=== PATIENT | female | born 1940 | race Caucasian/White ===

== ENCOUNTER 2017-06-21 10:30 | Inpatient (IN) | payer MEDICARE, OTHER ==
[2017-06-21 11:19] LABS: #Eosinphils 0.1 thou/uL (0.0-0.7); #Lymphocytes 1.8 thou/uL (1.20-3.40); #Monocytes 1.1 thou/uL (0.11-0.59); #Neutrophils 11.9 thou/uL (1.40-6.50); %Basophils 0.2 % (0.0-1.0); %Eosinophils 0.5 % (0.0-10.0); %Lymphocytes 12.1 % (21.0-51.0); %Monocytes 7.2 % (0.0-10.0); Hematocrit 29.7 % (36.0-47.0); Mean Platelet Volume 8.1 fL (7.4-10.4); Red Blood Cell (RBC) Count 3.22 mill/uL (4.20-5.40); White Blood Cell (WBC) Count 14.9 thou/uL (4.8-10.8)
[2017-06-21 11:29] LABS: PTT 24.2 SEC (22.9-36.1); Prothrombin Time 13.9 SEC (12.0-14.7)
[2017-06-21 11:41] LABS: ALT (SGPT) Less than 7 U/L (8-55); AST (SGOT) 13 U/L (5-34); Alkaline Phosphatase 69 U/L (40-150); Anion Gap 11 mmol/L (10-20); BUN (Urea Nitrogen) 63 mg/dL (9.8-20.1); Bilirubin, Total 0.3 mg/dL (0.2-1.2); Calc. Creatinine Clearance 0 mL/min (70-130); Calcium 9.7 mg/dL (7.8-10.44); Carbon Dioxide 27 mmol/L (23-31); Chloride 104 mmol/L (98-107); Estimated GFR-MDRD 52; Globulin 3.3 g/dL (2.4-3.5); Iron 37 ug/dL (50-170); Protein, Total 6.7 g/dL (6.0-8.3)
[2017-06-21] MEDS ORDERED: Pantoprazole 40 MG VIAL ONE (12:33)
[2017-06-21] MEDS ORDERED: Ondansetron HCl/PF 4 MG/2 ML Vial ONE ×2 (14:28→17:54)
--- NOTE | 2017-06-21 14:39 | HP ---
PRIMARY CARE PHYSICIAN: Charleen Vazquez D.O. CHIEF COMPLAINT: Black stools. HISTORY OF PRESENT ILLNESS: Ms. Wilson is a pleasant 76-year-old white female with a history of hyperte nsion, hypothyroidism, and osteoarthritis, who has had increased knee pain for the last 4-5 days. Lyly gonzalez has taken Aleve, but no more than about 2 tablets a day, 200 mg each, and 2 nights ago, started dev eloping black stools. Last night, after several episodes, she did get up and had some dizziness. It seemed to get better through the morning today, but happened again prior to presentation. She decid ed to come to the emergency department where she was found to have a hemoglobin of 9, she had guaiac- positive stool and black stool present on exam, and was orthostatic per reports. They called me for admission. I recommend to call GI now, so we are awaiting on transfer orders, and they have contacted Dr. Jay. The patient states she has not had anything to eat since 6:00 p.m. last night. She did take her morn ing medicines including her triamterene/hydrochlorothiazide, gabapentin, and levothyroxine. She does not have any history of chronic anemia. In response to her acute onset of knee pain, she called her primary doctor, she started taking predni sone 10 mg every morning for a 5-day course. She has taken that 3 times now. She attributes that to the start of all of her problems. PAST MEDICAL HISTORY: 1. Hypertension. 2. Osteoarthritis. 3. Hypothyroidism. PAST SURGICAL HISTORY: 1. Right renal stone removal. 2. Left leg surgery. HOME MEDICATIONS: 1. Limbrel 500 mg p.o. q.a.m. with food. She did not take today. 2. Maxzide 37.5/25 daily. She did take. 3. Gabapentin 600 mg p.o. b.i.d. She did take. 4. Propranolol 80 mg p.o. q.p.m. 5. Effexor 75 mg p.o. q.p.m. 6. Glucosamine/chondroitin 2 tablets daily. 7. Levothyroxine 50 mcg daily. ALLERGIES: NKDA. FAMILY HISTORY: Negative for clotting or bleeding disorder. No immune dysfunction. SOCIAL HISTORY: Negative for habits x3. She is . We discussed advanced directives. She does have an advanced directive at home. Regardless, respirat ory decompensation or cardiac arrest, she does not want to be resuscitated and was to be a DNR. She does not have a designated medical power of criminal attorney, but her son, Elver Wilson at phone number is her only child and is her surrogate decision maker. REVIEW OF SYSTEMS: A 10-point review of systems was performed, negative for all other systems except stated as per HPI. PHYSICAL EXAMINATION: VITAL SIGNS: Temperature is 97.5, pulse 88, blood pressure 129/57, respiratory rate 16-18, satting 9 6% on room air. GENERAL: She is awake, alert, and oriented x3. She appears to be in no acute distress. She is a we ll-developed, well-nourished, white female. HEENT: Normocephalic, atraumatic. Pupils equal, round, and reactive bilaterally. Mucous membranes are moist without visible lesions or thrush. LUNGS: Clear. Good air movement. Symmetrical chest excursion. No wheezes, rales, or rhonchi. No prolonged expiratory phase. CARDIOVASCULAR: She has normal S1, S2. No S3 or S4. No audible murmurs. She is regular. ABDOMEN: Soft, it is nontender, nondistended. No masses and no rebound, rigidity, or guarding. She does have normoactive bowel sounds present in all 4 quadrants. EXTREMITIES: With no cyanosis or clubbing. No edema. SKIN: Warm, moist, and well perfused without rashes or lesions. NEUROLOGICAL EXAM: Cranial nerves II-XII are grossly intact. She has no focal deficits. Normal spe ech pattern and 5/5 strength. LABORATORY EVALUATION: CMP is normal except for BUN elevated at 63. Liver functions are normal. CB C showed a white count of 14.9, hemoglobin 9.5, hematocrit of 29.7, platelet count 287,000. Iron lev el was low at 37. Her TIBC was 241 and her ferritin level was 199. RADIOGRAPHIC STUDIES: None. ASSESSMENT AND PLAN: 1. Upper gastrointestinal bleed: Patient has had increased use of Aleve. She is also on Limbrel, w hich may contribute. No history of prior bleed and does not drink alcohol. We will place her on Pro tonix drip. We will have GI evaluate her. She is n.p.o. and will be kept n.p.o. She has not had an ything by mouth since last night except for her morning medications today. Hopefully, GI will perfor m endoscopy today, but if not likely tomorrow. We will get serial H and Hs, and transfuse for hemogl obin less than 7. 2. Acute blood loss anemia: Hemoglobin is 9.5, likely lower once she gets rehydrated. She will be getting IV fluids. We will recheck serial H and Hs. 3. Hypertension, on Maxzide and propranolol daily. We will hold these for now. Her blood pressure is normal, but concerned about her becoming hypotensive with her gastrointestinal bleed. 4. Hypothyroidism, on levothyroxine. She took it today. Levothyroxine is a long-acting medication. There is no urgent need to restart. We will place her on an inpatient on the medical floor.
--- NOTE | 2017-06-21 16:52 | CON ---
DATE OF CONSULTATION: 06/21/2017 GI INPATIENT CONSULTATION NOTE REQUESTING PHYSICIAN: Johnathan Min M.D. REASON FOR CONSULTATION: Melena. HISTORY OF PRESENT ILLNESS: Abdirahman Wilson is a very pleasant 76-year-old woman with no prior significant gastrointestinal history, except for possibly clinically diagnosed gastric ulcer in the remote past. She has no chronic gastrointestinal symptoms. She is being admitted to the hospital from the emerge ncy department today, with melena over the past 3 days and new dizziness and orthostatic blood pressu res. She has significant arthritis, particularly some issues with the knees right now. For the past several days, she has been taking Aleve 2 tablets daily. For the past couple of days, she has also been taking prednisone. She noticed a dark stool started 2-3 days ago, and has had several OTC today . There has been no melena. She has had some nausea, but no vomiting, no significant abdominal pain . Today, she started to feel dizzy and lightheaded and this prompted her presentation. Her hemoglob in was found to be 9.5 and this is down from 12.2 just 3 weeks ago. BUN is markedly elevated at 63 w ith creatinine only 1.03. She is being started on a Protonix drip. She is going to be admitted to [facility]. We are consulted due to concern for GI bleeding. REVIEW OF SYSTEMS: Full review of systems including constitutional, head, eyes, ears, nose, throat, GI, , cardiovascular, respiratory, musculoskeletal, and neurologic systems is negative except as no nikhil in the HPI. PAST MEDICAL HISTORY: Hypertension, osteoarthritis, hypothyroidism, kidney stones, left leg surgery, possible history of remote peptic ulcer disease years ago. ALLERGIES: No known drug allergies. OUTPATIENT MEDICATIONS: Limbrel 500 mg daily with food, Maxzide daily, gabapentin b.i.d., propranolo l 80 mg q.p.m., Effexor 75 mg daily, glucosamine/chondroitin, levothyroxine, prednisone for the past 2 days, Aleve p.r.n. FAMILY HISTORY: Negative for gastrointestinal illness or malignancy. SOCIAL HISTORY: She is . No smoking, alcohol, or drug use. She has a lot of family members with her. PHYSICAL EXAMINATION: VITAL SIGNS: Temperature 97.5, pulse 88, blood pressure 129/57, 96% oxygen saturation on room air. GENERAL: A 76-year-old woman lying in bed comfortably in no distress. SKIN: A bit pale, no jaundice, no rashes were palpable. EYES: No scleral icterus. Extraocular movements intact. ENT: Mucous membranes moist, no oral lesions. LYMPH: No submandibular or supraclavicular lymphadenopathy. THYROID: Nontender to palpation. HEART: Regular rate and rhythm. LUNGS: Clear to auscultation bilaterally. ABDOMEN: Bowel sounds present. Soft and nontender to palpation throughout. EXTREMITIES: No peripheral edema. VESSELS: Radial pulses 2+ bilaterally. NEUROLOGICAL: Cranial nerves II-XII intact bilaterally. No focal deficits. LABORATORY STUDIES: Hemoglobin 9.5 this is down from 12.2 just 3 weeks ago. WBC 14.9, platelets 287 . MCV 92.2. BUN elevated at 63, creatinine 1.03, INR 1.1. Sodium 138, potassium 4.3, total bilirub in 0.3, alkaline phosphatase 69, AST 13, ALT less than 7, albumin 3.4, ferritin 199, iron 37, TIBC 24 1. ASSESSMENT AND PLAN: 1. Melena. 2. Acute blood loss anemia. 3. Chronic nonsteroidal anti-inflammatory drug use. The patient's presentation is consistent with new upper gastrointestinal bleeding over the past sever al days. She has had a significant decline in hemoglobin over the past few weeks. Given the NSAID u se, I would most suspect upper gastrointestinal mucosal pathology such as gastritis or peptic ulcer d isease. We will proceed with EGD this evening. Please go ahead and start Protonix continuous infusi on. Further recommendations following endoscopy.
[2017-06-21] MEDS ORDERED: Propofol 200 MG/20 ML VIAL ONE (17:54)
[2017-06-21] MEDS ORDERED: Succinylcholine Chloride 20 MG/ML 10 ml SYRINGE FS ONE (17:54)
[2017-06-21] MEDS ORDERED: Lidocaine 1% PF 5 ML VIAL ONE (17:54)
[2017-06-21] MEDS ORDERED: PHENYLEPHRINE-NS 100 MCG/ML 10 ML SYRINGE ONE (17:54)
[2017-06-21] MEDS ORDERED: Promethazine HCl 25 MG/ML VIAL IM PRN (18:56)
[2017-06-21] MEDS ORDERED: Ondansetron HCl/PF 4 MG/2 ML Vial IVP PRN ×2 (18:56→19:39)
[2017-06-21] MEDS ORDERED: Promethazine HCl 25 MG/ML VIAL SLOW IVP PRN (18:56)
[2017-06-21] MEDS ORDERED: Acetaminophen 325 MG TAB PO PRN (19:39)
[2017-06-21] MEDS ORDERED: HYDROcodone/Acetaminophen 5/325 mg Tablet PO PRN (19:39)
[2017-06-21] MEDS ORDERED: HYDROcodone/Acetaminophen 10/325 mg Tablet PO PRN (19:39)
[2017-06-21] MEDS ORDERED: hydrALAZINE 20 MG/ML VIAL SLOW IVP PRN (19:39)
[2017-06-21] MEDS ORDERED: Pantoprazole 80 MG in Sodium Chloride 0.9% 100 ML IVP SCH (19:39)
[2017-06-21] MEDS ORDERED: Sodium Chloride 0.9% 1,000 ML IV SCH (20:00)
[2017-06-21 20:25] LABS: Hematocrit 20.5 % (36.0-47.0)
[2017-06-21] MEDS: Pantoprazole 80 MG in Sodium Chloride 0.9% 100 ML IVP SCH (20:47)
[2017-06-21 20:57] VITALS: BMI 28.7
--- NOTE | 2017-06-21 22:22 | OP ---
DATE OF PROCEDURE: 06/21/2017 SURGEON: Pranav Jay M.D. ORDERING MACHINE OPERATOR SURGEON: None. PROCEDURE: Esophagogastroduodenoscopy, diagnostic. INDICATION: 1. Melena. 2. Acute blood loss anemia. MEDICATIONS: See anesthesia record. FINDINGS: After discussion of the risks, benefits and alternatives of the procedure, informed consen t was obtained and witnessed. Pre-endoscopic cardiopulmonary examination was satisfactory. DESCRIPTION OF PROCEDURE: Timeout was performed before sedation was achieved. Sedation was achieved with anesthesia assistance in the endoscopy unit. A Pentax adult upper endoscope was placed into th e oropharynx and passed through the cricopharyngeus under direct visualization. The esophageal mucos a appeared normal throughout with a normal appearing Z-line. There was no evidence of any esophageal varices. The endoscope was then advanced into the stomach. Forward and retroflexed views of the en tire gastric mucosa were obtained. There was no evidence of any gastric varices. There were a coupl e of very large fresh blood clots within the gastric lumen, these were unable to be suctioned with th e regular endoscope. The regular endoscope was completely withdrawn and the patient was endotracheal ly intubated for airway protection. We then switched scopes to a therapeutic upper endoscope and the patient esophagus was reintubated and the stomach reexamined. The fresh blood clots were able to be suctioned out easily and careful examination of the stomach and first and second portions of the duo denum was performed. There was no active bleeding on this examination. In the gastric antrum, there is moderate to severe erosive gastritis with several small clean based erosions. In the duodenal bu lb, there is erosive duodenitis with multiple small clean based erosions and also a single duodenal u lcer in the posterior duodenal bulb near the apex. Visualization of this ulcer was quite difficult w ith good views were eventually obtained. The ulcers mostly clean based with no visible vessel or act zoila bleeding, but the edges are quite friable. No endoscopic therapy was applied to this area. The endoscope was then used to reexamine the stomach very carefully with a lot of irrigation and suctioni ng and careful examination of the entire gastric mucosa. I was unable to find any other more signifi cant lesion in the stomach. At this point, the endoscope was completely withdrawn and the patient al lowed to recover. The patient tolerated the procedure well. There were no immediate post-procedure complications. IMPRESSION: 1. Duodenal ulcer in the posterior bulb, with clean base, but friable edges. No endoscopic therapy applied. 2. Erosive duodenitis in the duodenal bulb. 3. Erosive gastritis in the antrum. RECOMMENDATIONS: 1. Continue the IV PPI, Protonix 40 mg IV q.12 hours. 2. Clear liquid diet for tonight. 3. Avoid any further nonsteroidal anti-inflammatory drugs, stop the prednisone. 4. Monitor H and H tomorrow. 5. Check H. pylori serology with morning labs. If positive, treat with triple therapy and confirm e radication. 6. Anticipate the patient will be able to transition to oral proton pump inhibitor twice daily dosin g upon hospital discharge. GI will follow along. Please call anytime with questions or concerns.
--- NOTE | 2017-06-22 03:54 | PDOC.EVN ---
Event Note - Event Note Event Note: Pt had Hb of 6g at 8pm, 2 units of prbc were ordered. Currently she is recieving blood, had a large bm which was maroon colored and vomited serosanguinous material once. SBP around 90's. Has know duodenal ulcer with no intervention done due to friable edges. Transfer pt to critical care unit until she is hemodynamically stable with H/H trend. She will be npo for now. May transfuse prn if repeat Hb is still low or SBP drops to 80"s.
[2017-06-22] MEDS ORDERED: Dextrose 5 % And 0.9 % NaCl 1,000 ML IV SCH (04:00)
[2017-06-22 10:05] LABS: Anion Gap 13 mmol/L (10-20); BUN (Urea Nitrogen) 77 mg/dL (9.8-20.1); Calc. Creatinine Clearance 54 mL/min (70-130); Calcium 7.8 mg/dL (7.8-10.44); Carbon Dioxide 18 mmol/L (23-31); Chloride 113 mmol/L (98-107); Estimated GFR-MDRD 43
--- NOTE | 2017-06-22 11:14 | PRG ---
GI INPATIENT DAILY PROGRESS NOTE DATE OF SERVICE: 06/22/2017 SUBJECTIVE: Overnight about 3:00 a.m., Ms. Wilson had another large bowel movement with maroon stool an d also actually had a small amount of emesis with blood tinged. She was moved to the monitored care setting. Since then, she has had no further bowel movements. No further emesis. She has remained h emodynamically stable without tachycardia. She received 2 units RBC transfusion after hemoglobin had declined to 6.6 yesterday. We are still awaiting morning hemoglobin today. No abdominal pain, just a little queasiness. OBJECTIVE: VITAL SIGNS: Temperature 97.9, pulse 75, blood pressure 132/55 and 98% oxygen saturation on room air . GENERAL: Pale, no acute distress. HEART: Regular rate and rhythm. LUNGS: Clear to auscultation bilaterally. ABDOMEN: Soft and nontender to palpation. EXTREMITIES: No peripheral edema. LABORATORY STUDIES: Sodium 140, potassium 4.2, BUN 77, creatinine 1.22, INR 1.1. Hemoglobin had dec lined to 6.6 as of 8:00 last night. She has received 2 units RBCs overnight. Awaiting follow up hem oglobin from this morning. ASSESSMENT AND PLAN: 1. Upper gastrointestinal bleeding from duodenal ulcer. 2. Acute blood loss anemia. 3. Erosive duodenitis. 4. Erosive gastritis. It sounds like she may have had another episode of acute bleeding overnight, which appears to have resolved again. She remains hemodynamically stable. Awaiting follow up hemogl obin and hematocrit. Continue to trend hemoglobin and hematocrit more closely. We will trend every 6 hours. Transfuse as needed. Continue the Protonix drip for now and also remain n.p.o. today. We will not plan on repeating esophagogastroduodenoscopy today unless it appears she has recurrent overt bleeding. We will continue to follow closely. Please call at any time with questions or concerns.
--- NOTE | 2017-06-22 11:15 | PDOC.PN ---
- Subjective Encounter Start Date: 06/22/17 Encounter Start Time: 08:00 Overnight events reviewed. PT had another large black tarry stool, serosanguinous vomit. trnasferred to IM when repeat H/H at 6.5. transfused 2 units PRBCs. Seen by GI last evening, taken for EGD. DU and erosive esophagitis present, no active bleeding, but friable DU edges. No intervention Pt complains of dry mouth, no CP, no SOB, weak. No further GI bleeding noted. 10 point ROs peformed and neg for all systems except as per HPI - Objective Resuscitation Status: Resuscitation Status FULL:Full Resuscitation MAR Reviewed: Yes Vital Signs & Weight: Vital Signs (12 hours) Temp Pulse Pulse Resp BP BP Pulse Ox 06/22/17 07:27 97.9 F 73 16 132/55 L 98 06/22/17 07:00 97.9 F 74 16 132/55 L 97 06/22/17 06:00 97.3 F L 16 100 06/22/17 05:45 97.5 F L 16 100 06/22/17 05:00 97.8 F 77 16 105/49 L 100 06/22/17 04:42 97.8 F 96 16 82/61 L 100 06/22/17 03:49 97.4 F L 92 16 108/70 95 06/22/17 03:35 97.5 F L 92 20 105/69 06/22/17 03:25 97.5 F L 92 18 101/60 06/21/17 23:43 98.0 F 86 16 93/52 L Weight Weight 190 lb 8 oz Most Recent Monitor Data Heart Rate from ECG 74 NIBP 105/46 Respiration from ECG 16 I&O: 06/21/17 06/22/17 06/23/17 06:59 06:59 06:59 Intake Total 350 0 Balance 350 0 Result Diagrams: 06/21/17 20:18 06/22/17 09:34 Radiology Reviewed by me: Yes EKG Reviewed by me: Yes Phys Exam - Physical Examination Constitutional: NAD pale HEENT: PERRLA, moist MMs, sclera anicteric, oral pharynx no lesions Neck: no nodes, no JVD, supple, full ROM Respiratory: no wheezing, no rales, no rhonchi, clear to auscultation bilateral Cardiovascular: RRR, no significant murmur, no rub Gastrointestinal: soft, non-tender, no distention, positive bowel sounds Musculoskeletal: pulses present, edema present 1+ pedal Neurological: non-focal, normal sensation, moves all 4 limbs Lymphatic: no nodes Psychiatric: normal affect, A&O x 3 Skin: no rash, normal turgor, cap refill <2 seconds Dx/Plan (1) Duodenal ulcer Status: Acute Comment: not actively bleeding on EGD. GI following, serial h/ H. (2) Erosive esophagitis Code(s): K22.10 - ULCER OF ESOPHAGUS WITHOUT BLEEDING Status: Acute Comment : as above (3) Acute blood loss anemia Code(s): D62 - ACUTE POSTHEMORRHAGIC ANEMIA Status: Acute Comment: hgb 6.X after rehydration. transfused PRBCs X 2 units. serial h/H, transfus as needed. 2 units on hold (4) Hypothyroid Code(s): E03.9 - HYPOTHYROIDISM, UNSPECIFIED Status: Chronic Qualifiers: Hypothyroidism type: acquired Qualified Code(s): E03.9 - Hypothyroidism, unspecified (5) HTN (hypertension) Code(s): I10 - ESSENTIAL (PRIMARY) HYPERTENSION Status: Chronic Qualifiers: Hypertension type: essential hypertension Qualified Code(s): I10 - Essential (primary) hypertension (6) Orthostasis Code(s): I95.1 - ORTHOSTATIC HYPOTENSION Status: Resolved Comment: much better since rehydration - Plan cont current plan of care * .
[2017-06-22 12:06] LABS: #Lymphocytes 1.7 thou/uL (1.20-3.40); #Monocytes 0.8 thou/uL (0.11-0.59); #Neutrophils 9.9 thou/uL (1.40-6.50); %Basophils 0.1 % (0.0-1.0); %Eosinophils 0.1 % (0.0-10.0); %Lymphocytes 13.4 % (21.0-51.0); %Monocytes 6.3 % (0.0-10.0); Hematocrit 23.3 % (36.0-47.0); Mean Platelet Volume 8.2 fL (7.4-10.4); Red Blood Cell (RBC) Count 2.57 mill/uL (4.20-5.40); White Blood Cell (WBC) Count 12.4 thou/uL (4.8-10.8)
[2017-06-22] MEDS: Sodium Chloride 0.45% 1,000 ML IV SCH ×2 (13:20→22:39)
[2017-06-22] MEDS ORDERED: Fentanyl 100 MCG/2 ML VIAL ONE (16:22)
[2017-06-22] MEDS ORDERED: Midazolam HCl 2 mg/2 ml Vial ONE (16:23)
--- NOTE | 2017-06-22 16:23 | CON ---
DATE OF CONSULTATION: 06/22/2017 HISTORY OF PRESENT ILLNESS: Ms. Abdirahman Wilson is a 76-year-old female who presented yesterday with melena . She has undergone endoscopy, which showed findings of a duodenal ulcer and erosive duodenitis and gas tritis. Bleeding is felt to have subsided. I am consulted because of her presence in the Intermediate Care Unit. PAST MEDICAL HISTORY: Remarkable for hypertension, degenerative arthritis, hypothyroidism and nephro lithiasis. MEDICATIONS: She was having knee pain, so she has been taking nonsteroidals and prednisone on her ow n. SOCIAL HISTORY: She is a nonsmoker, nondrinker. FAMILY HISTORY: No family history of bleeding or lung disease. REVIEW OF SYSTEMS: Otherwise negative. PHYSICAL EXAMINATION: VITAL SIGNS: She is afebrile. Heart rate is 94, respiratory rate is 18, oximetry is 94% and blood p ressure 135/68. HEENT: Pupils are equal. Sclerae are anicteric. NECK: Supple. LUNGS: Clear. HEART: Regular rhythm. ABDOMEN: Soft, but minimally tender in her epigastrium. EXTREMITIES: Without asymmetry. LABORATORY DATA: White count 12.4, hemoglobin 7.9, platelets 191, hemoglobin dropped from 9.5 to 6.6 yesterday evening. IMPRESSION And Plan: Gastrointestinal bleed, stabilizing, being followed by Gastroenterology, but no hemodynamic or respiratory issues at this time.
[2017-06-22 16:40] LABS: Hematocrit 19.9 % (36.0-47.0)
[2017-06-22] MEDS ORDERED: Propofol 200 MG/20 ML VIAL ONE (17:34)
[2017-06-22] MEDS ORDERED: Succinylcholine Chloride 20 MG/ML 10 ml SYRINGE FS ONE (17:35)
[2017-06-22] MEDS ORDERED: Ondansetron HCl/PF 4 MG/2 ML Vial IVP PRN (18:00)
[2017-06-22] MEDS ORDERED: Promethazine HCl 25 MG/ML VIAL SLOW IVP PRN (18:00)
[2017-06-22] MEDS ORDERED: Promethazine HCl 25 MG/ML VIAL IM PRN (18:00)
--- NOTE | 2017-06-22 19:13 | OP ---
DATE OF PROCEDURE: 06/22/2017 SURGEON: Pranav Jay M.D. GEOSCIENCES ASSOCIATE PROFESSOR SURGEON: None. PROCEDURE: Esophagogastroduodenoscopy with control of hemorrhage. INDICATION: A 76-year-old woman with recurrent upper gastrointestinal bleeding. EGD yesterday demon strated a duodenal ulcer with clean, but friable based and no endoscopic therapy was applied; however , over the course of today, there is concern for recurrent bleeding due to hemodynamic instability an d continued decline in hemoglobin. We are taking a second look EGD. MEDICATIONS: See anesthesia record. FINDINGS: After discussion of the risks, benefits and alternatives of the procedure, informed consen t was obtained and witnessed. Pre-endoscopic cardiopulmonary examination was satisfactory. Timeout was performed before sedation was achieved. Sedation was achieved with anesthesia assistance in the endoscopy unit. The patient was endotracheally intubated for airway protection under general anesthe milady. A Pentax adult therapeutic upper endoscope was placed into the oropharynx and passed through th e cricopharyngeus under direct visualization. The esophageal mucosa appeared normal throughout with a normal-appearing Z-line. There were no esophageal varices. The endoscope was advanced into the st omach. Forward and retroflexed views of the entire gastric mucosa were obtained. There was no evide nce of any gastric varices. The proximal esophageal mucosa appeared normal. In the gastric antrum, there is still some mild erosive gastritis. There is no evidence of any old blood or active bleeding in the stomach on today's exam. The endoscope was passed through the pylorus and into the first and second portions of the duodenum. There was no old blood or active bleeding to the extent examined. The duodenal ulcer on the posterior wall of the distal duodenal bulb was again visualized on today's examination. This has a different appearance. There is a large visible vessel apparent. There was no overlying clot, no active bleeding, but this is certainly felt to be the site of her recurrent bl eeding episodes. I used a 10-Yemeni bipolar Gold Probe to cauterize the ulcer base. Hemostasis was maintained. The visible vessel was obliterated. The upper endoscope was then completely withdrawn a nd the patient allowed to recover. The patient tolerated the procedure well. There were no immediat e postprocedure complications. IMPRESSION: 1. Duodenal bulb ulcer with visible vessel, cauterized with 10-Yemeni bipolar cautery probe, hemosta sis maintained. 2. Erosive gastritis and duodenitis. RECOMMENDATIONS: 1. Continue the IV PPI. 2. Finish out 2 units RBC transfusion. 3. Continue to closely monitor. 4. Clear liquid diet. GI will continue to follow along. Please call anytime with questions or conc erns.
[2017-06-22] MEDS: Venlafaxine HCl XR 75 MG CAP PO SCH (22:38)
[2017-06-22 23:32] LABS: Hematocrit 27.6 % (36.0-47.0)
[2017-06-23] MEDS: Pantoprazole 80 MG in Sodium Chloride 0.9% 100 ML IVP SCH ×2 (03:26→14:06)
[2017-06-23 05:34] LABS: Band 4 % (5-11); Hematocrit 27.2 % (36.0-47.0); Mean Platelet Volume 8.1 fL (7.4-10.4); Neutrophil 84 % (42-75); Red Blood Cell (RBC) Count 3.04 mill/uL (4.20-5.40); White Blood Cell (WBC) Count 21.9 thou/uL (4.8-10.8)
[2017-06-23 05:36] LABS: Anion Gap 12 mmol/L (10-20); BUN (Urea Nitrogen) 86 mg/dL (9.8-20.1); Calc. Creatinine Clearance 43 mL/min (70-130); Calcium 7.5 mg/dL (7.8-10.44); Carbon Dioxide 20 mmol/L (23-31); Chloride 108 mmol/L (98-107); Estimated GFR-MDRD 33
--- NOTE | 2017-06-23 10:13 | PDOC.PN ---
- Subjective Encounter Start Date: 06/23/17 Encounter Start Time: 08:15 Pt seen and [place], chart reviewed. Eventful evening. Pt developed hematemesis again, repeat Hgb back to 6.7, transfused 2 units, taken back for EGD: DU with visible vessel. cauterized. Hgb 9.4 post transfusion, 8.9 today. No F/C,no n/V/D/C, no CP or SOB. 10 point ROS performed, sig for dysuria. no hematuria. otherwise neg for all systems except as above - Objective Resuscitation Status: Resuscitation Status FULL:Full Resuscitation MAR Reviewed: Yes Vital Signs & Weight: Vital Signs (12 hours) Temp Pulse Resp BP BP Pulse Ox 06/23/17 08:48 97.9 F 109 H 18 06/23/17 07:00 97.9 F 109 H 18 153/58 H 99 06/23/17 05:00 116/85 06/23/17 04:00 98.6 F 84 18 179/59 H 100 06/23/17 00:00 97.8 F 88 14 168/53 H 99 Weight Weight 190 lb 8 oz Most Recent Monitor Data Heart Rate from ECG 74 NIBP 105/46 Respiration from ECG 16 I&O: 06/22/17 06/23/17 06/24/17 06:59 06:59 06:59 Intake Total 350 3040 Balance 350 3040 Result Diagrams: 06/23/17 04:57 06/23/17 04:57 Radiology Reviewed by me: Yes EKG Reviewed by me: Yes Phys Exam - Physical Examination Constitutional: NAD HEENT: PERRLA, moist MMs, sclera anicteric, oral pharynx no lesions Neck: no nodes, no JVD, supple, full ROM Respiratory: no wheezing, no rales, no rhonchi, clear to auscultation bilateral Cardiovascular: RRR, no significant murmur, no rub Gastrointestinal: soft, non-tender, no distention, positive bowel sounds Musculoskeletal: no edema, pulses present Neurological: non-focal, normal sensation, moves all 4 limbs Lymphatic: no nodes Psychiatric: normal affect, A&O x 3 Skin: no rash, normal turgor, cap refill <2 seconds Dx/Plan (1) Duodenal ulcer Status: Acute Comment: Actively bleeding on repeat EGD with visible vessel. GI following, serial h/H. cauterized. watch h/h (2) Erosive esophagitis Code(s): K22.10 - ULCER OF ESOPHAGUS WITHOUT BLEEDING Status: Acute Comment : as above (3) Acute blood loss anemia Code(s): D62 - ACUTE POSTHEMORRHAGIC ANEMIA Status: Acute Comment: hgb 6.X after rehydration. transfused PRBCs X 2 units. 6.7 last evening, transfused 2 more units. Serial h/H, transfuse as needed. (4) Hypothyroid Code(s): E03.9 - HYPOTHYROIDISM, UNSPECIFIED Status: Chronic Qualifiers: Hypothyroidism type: acquired Qualified Code(s): E03.9 - Hypothyroidism, unspecified (5) HTN (hypertension) Code(s): I10 - ESSENTIAL (PRIMARY) HYPERTENSION Status: Chronic Qualifiers: Hypertension type: essential hypertension Qualified Code(s): I10 - Essential (primary) hypertension (6) Orthostasis Code(s): I95.1 - ORTHOSTATIC HYPOTENSION Status: Resolved Comment: much better since rehydration - Plan cont current plan of care * .
[2017-06-23] MEDS ORDERED: Hydrocortisone Acetate 25 MG Suppository PR PRN (11:42)
[2017-06-23] MEDS: Sodium Chloride 0.45% 1,000 ML IV SCH ×2 (12:03→20:19)
--- NOTE | 2017-06-23 12:06 | PRG ---
DATE OF SERVICE: 06/23/2017 SUBJECTIVE: She is complaining of pain with urination and with defecation. OBJECTIVE: VITAL SIGNS: Temperature is 97.9, pulse 109, respirations 18, O2 sat 99%, blood pressure 153/58. HEENT: Unremarkable. NECK: No JVD. LUNGS: Clear. CARDIAC: S1 and S2 regular. ABDOMEN: Soft. EXTREMITIES: No edema. LABORATORY DATA: White blood cell count 21.9, hematocrit 27.2, platelet count 186. Sodium 135, pota ssium 4.5, chloride 108, CO2 20, BUN 86, creatinine 1.5, glucose 140. ASSESSMENT: 1. Gastrointestinal bleeding. 2. Duodenal bulb ulcer. 3. Erosive gastritis. PLAN: 1. Continue to monitor. 2. Continue Protonix drip. 3. Transfer to floor when okay with GI.
[2017-06-23 12:57] LABS: Bilirubin Negative (Negative); Blood, Urine Negative (Negative); Glucose, Urine (Dipstick) Negative (Negative); Ketone, Urine Negative (Negative); Nitrite Negative (Negative); Protein, Urine (Dipstick) Negative (Neg-Trace); Urobilinogen 0.2 mg/dL (0.2-1.0)
[2017-06-23 13:00] LABS: Bacteria/HPF 4+ HPF (None Seen); Hyaline Casts/LPF 4-6 HYALINE CAST LPF (0-3 Hyaline); RBC/HPF 0-3 HPF (0-3); Squamous Epithelial None Seen HPF (0-3)
[2017-06-23] MEDS ORDERED: cefTRIAXone\\ROCEPHIN 2 GM, Admixture Fee 1 EACH in Sodium Chloride 0.9% 100 ML IVPB SCH (13:30)
--- NOTE | 2017-06-23 17:32 | PRG ---
DATE OF SERVICE: 06/23/2017 SUBJECTIVE: Ms. Wilson is feeling better today. She is tolerating her liquid diet, not too much more a ppetite, so she is not really keen on advancing it right now, but there is no abdominal pain, no naus ea or vomiting. She has continued to have some black to maroon colored stools today, 4 overall over the course of the day, but she has remained hemodynamically stable without any further tachycardia an d much better blood pressures. Hemoglobin went up to 9.4 transfusion, was 8.9 this morning, though t his afternoon it came back at 7.6. OBJECTIVE: VITAL SIGNS: Temperature 97.7, pulse 87, blood pressure 165/51, 97% oxygen saturation on room air. GENERAL: No acute distress, appearing more energetic, in good spirits. HEART: Regular rate and rhythm. LUNGS: Clear to auscultation bilaterally. ABDOMEN: Soft and nontender to palpation. EXTREMITIES: No peripheral edema. LABORATORY STUDIES: Hemoglobin 7.6 down from 8.9 this morning, WBC is 21.9, platelets 186. INR 1.1. Sodium 135, potassium 4.5, BUN 86, creatinine 1.53. Urinalysis showed greater than 50 wbc's. ASSESSMENT AND PLAN: 1. Duodenal ulcer with visible vessel and active hemorrhage, status post EGD yesterday with electroc autery of the visible vessel. 2. Acute blood loss anemia, waiting for stabilization. 3. Melena, secondary to duodenal ulcer bleeding. 4. Erosive gastritis and duodenitis. Ms. Wilson has been hemodynamically stable today, though note this afternoon hemoglobin continued to rubi nd down. It is unclear whether she is having rebleeding as she has had some continued melena, but th is may be old blood. I would keep her under close observation in the ICU tonight. Continue the swetha r liquid diet for now along with the Protonix drip. We will continue to follow along closely. Pleas e call at any time with questions or concerns. Note, urinalysis seems to suggest urinary tract infection. Treatment per primary service.
[2017-06-23] MEDS ORDERED: cefTRIAXone\\ROCEPHIN 1 GM in Sodium Chloride 0.9% 100 ML IVPB SCH (20:00)
[2017-06-23 21:19] LABS: Hematocrit 23.7 % (36.0-47.0)
[2017-06-23] MEDS: Venlafaxine HCl XR 75 MG CAP PO SCH (21:21)
[2017-06-24] MEDS: Pantoprazole 80 MG in Sodium Chloride 0.9% 100 ML IVP SCH ×2 (03:56→15:02)
[2017-06-24 04:56] LABS: #Eosinphils 0.1 thou/uL (0.0-0.7); #Monocytes 1.1 thou/uL (0.11-0.59); %Basophils 0.2 % (0.0-1.0); %Eosinophils 0.8 % (0.0-10.0); %Lymphocytes 18.1 % (21.0-51.0); %Monocytes 9.3 % (0.0-10.0); Hematocrit 20.7 % (36.0-47.0); Mean Platelet Volume 7.2 fL (7.4-10.4); Red Blood Cell (RBC) Count 2.34 mill/uL (4.20-5.40); White Blood Cell (WBC) Count 11.2 thou/uL (4.8-10.8)
[2017-06-24 05:07] LABS: Anion Gap 8 mmol/L (10-20); BUN (Urea Nitrogen) 54 mg/dL (9.8-20.1); Calc. Creatinine Clearance 68 mL/min (70-130); Calcium 7.2 mg/dL (7.8-10.44); Carbon Dioxide 23 mmol/L (23-31); Chloride 109 mmol/L (98-107); Estimated GFR-MDRD 55
[2017-06-24] MEDS: Sodium Chloride 0.45% 1,000 ML IV SCH (10:01)
[2017-06-24] MEDS ORDERED: Potassium Chloride 40 MEQ in Premix Bag 1 BAG IVPB SCH (10:15)
[2017-06-24] MEDS ORDERED: Potassium Chloride 40 MEQ, Admixture Fee 1 EACH in Sodium Chloride 0.9% 250 ML 250 ML IVPB SCH (10:30)
--- NOTE | 2017-06-24 11:26 | PRG ---
DATE OF SERVICE: 06/24/2017 SUBJECTIVE: Ms. Wilson is feeling okay. No abdominal pain, no dizziness or lightheadedness. Appetite is still not great. She has remained hemodynamically stable. She continued to have several dark bow el movements overnight, she received 50 unit RBC transfusion yesterday with post-transfusion hemoglob in 8.1, but it came down to 7.1 this morning. PHYSICAL EXAMINATION: VITAL SIGNS: Temperature 98.0, pulse 83, blood pressure 133/41, and 100% oxygen saturation on room a ir. GENERAL: No acute distress. HEART: Regular rate and rhythm. LUNGS: Clear to auscultation bilaterally. ABDOMEN: Soft, nontender to palpation. EXTREMITIES: No peripheral edema. LABORATORY STUDIES: Hemoglobin down to 7.1. WBC 11.2, platelet 120. Sodium 137, potassium 3.1, BUN came down from 86-54, creatinine down from 1.53 to 0.98. ASSESSMENT AND PLAN: 1. Duodenal ulcer with hemorrhage, status post treatment with electrocautery 2 days ago. 2. Melena. 3. Acute blood loss anemia, not yet stabilized. Clinically, I am not really sure if she is having s ignificant active bleeding this morning. She has continued to have melena and hemoglobin has decline d. On the other hand, all the other parameters including hemodynamic status and the BUN have much im proved. We will check the H&H again early this afternoon. If significant decline, we would perform one more repeat EGD for reassessment of the duodenal ulcer site. Otherwise, continue the PPI drip.
--- NOTE | 2017-06-24 11:47 | PDOC.PN ---
- Subjective Encounter Start Date: 06/24/17 Encounter Start Time: 10:50 continued to have melanic type stools last night. patient otherwise states she is doing okay. denies any abd pain, N/V/D - Objective Resuscitation Status: Resuscitation Status FULL:Full Resuscitation Vital Signs & Weight: Vital Signs (12 hours) Temp Pulse Resp BP Pulse Ox 06/24/17 11:10 97.8 F 78 18 140/48 L 100 06/24/17 10:05 79 16 130/46 L 100 06/24/17 08:15 98.0 F 83 15 06/24/17 07:00 98.0 F 83 15 133/41 L 100 06/24/17 04:00 98.4 F 84 18 131/42 L 99 06/24/17 00:00 98.2 F 88 18 155/38 H 100 Weight Weight 190 lb 8 oz Most Recent Monitor Data Heart Rate from ECG 74 NIBP 105/46 Respiration from ECG 16 I&O: 06/23/17 06/24/17 06/25/17 06:59 06:59 06:59 Intake Total 3040 2700 Output Total 700 Balance 3040 1999 Result Diagrams: 06/24/17 04:26 06/24/17 04:26 Phys Exam - Physical Examination HEENT: PERRLA, moist MMs Neck: no JVD Respiratory: no wheezing, clear to auscultation bilateral Cardiovascular: RRR, no rub Gastrointestinal: soft, non-tender, no distention, positive bowel sounds Musculoskeletal: pulses present Neurological: non-focal Dx/Plan (1) Acute blood loss anemia Code(s): D62 - ACUTE POSTHEMORRHAGIC ANEMIA Status: Acute Comment: hgb 6.X after rehydration. transfused PRBCs X 2 units. 6.7 last evening, transfused 2 more units. Serial h/H, transfuse as needed. (2) Duodenal ulcer Status: Acute Comment: Actively bleeding on repeat EGD with visible vessel. GI following, serial h/H. cauterized. watch h/h (3) Erosive esophagitis Code(s): K22.10 - ULCER OF ESOPHAGUS WITHOUT BLEEDING Status: Acute Comment : as above (4) HTN (hypertension) Code(s): I10 - ESSENTIAL (PRIMARY) HYPERTENSION Status: Chronic Qualifiers: Hypertension type: essential hypertension Qualified Code(s): I10 - Essential (primary) hypertension (5) Hypothyroid Code(s): E03.9 - HYPOTHYROIDISM, UNSPECIFIED Status: Chronic Qualifiers: Hypothyroidism type: acquired Qualified Code(s): E03.9 - Hypothyroidism, unspecified - Plan cont current plan of care * . continue to monitor H/H this afternoon transfuse one unit follow recs from GI possible EGD tmrw if symptoms persist
[2017-06-24 12:54] LABS: Hematocrit 20.6 % (36.0-47.0)
[2017-06-24] MEDS: cefTRIAXone\\ROCEPHIN 1 GM, Syringe 0.4 ML in Sterile Water 9.6 ML SLOW IVP SCH (15:59)
[2017-06-24] MEDS: Venlafaxine HCl XR 75 MG CAP PO SCH (20:48)
[2017-06-24 21:31] LABS: Hematocrit 24.3 % (36.0-47.0)
[2017-06-25 04:42] LABS: #Eosinphils 0.2 thou/uL (0.0-0.7); #Lymphocytes 1.4 thou/uL (1.20-3.40); #Monocytes 0.8 thou/uL (0.11-0.59); #Neutrophils 5.2 thou/uL (1.40-6.50); %Basophils 0.2 % (0.0-1.0); %Eosinophils 2.6 % (0.0-10.0); %Lymphocytes 18.1 % (21.0-51.0); %Monocytes 10.7 % (0.0-10.0); Hematocrit 24.5 % (36.0-47.0); Mean Platelet Volume 6.9 fL (7.4-10.4); Red Blood Cell (RBC) Count 2.72 mill/uL (4.20-5.40); White Blood Cell (WBC) Count 7.6 thou/uL (4.8-10.8)
[2017-06-25 05:22] LABS: Anion Gap 7 mmol/L (10-20); BUN (Urea Nitrogen) 22 mg/dL (9.8-20.1); Calc. Creatinine Clearance 86 mL/min (70-130); Calcium 7.5 mg/dL (7.8-10.44); Carbon Dioxide 25 mmol/L (23-31); Chloride 109 mmol/L (98-107); Estimated GFR-MDRD 73
[2017-06-25] MEDS: Sodium Chloride 0.45% 1,000 ML IV SCH ×2 (05:27→18:22)
[2017-06-25] MEDS: Pantoprazole 80 MG in Sodium Chloride 0.9% 100 ML IVP SCH ×2 (05:28→14:53)
--- NOTE | 2017-06-25 10:17 | PRG ---
GI INPATIENT DAILY PROGRESS NOTE DATE OF SERVICE: 06/25/2017 SUBJECTIVE: Ms. Wilson is feeling okay this morning. Abdominal discomfort is really minimal. She has remained hemodynamically stable. She received 1 more unit of RBC transfusion last night and hemoglob in is stable overnight, BUN is also coming down nicely. Melenic stools have slowed down. OBJECTIVE: VITAL SIGNS: Temperature 97.9, pulse 78, blood pressure 125/51, 100% oxygen saturation on room air. GENERAL: Pale but in no acute distress, lying in bed comfortably. HEART: Regular rate and rhythm. LUNGS: Clear to auscultation bilaterally. ABDOMEN: Soft and nontender to palpation throughout. EXTREMITIES: No peripheral edema. LABORATORY STUDIES: Hemoglobin 8.3, stable from 8.4 yesterday, WBC 7.6, platelets 121. Sodium 138, potassium 3.0, BUN down to 22, creatinine 0.77. ASSESSMENT AND PLAN: 1. Duodenal ulcer with active hemorrhage, now status post treatment with electrocautery on esophagog astroduodenoscopy on 06/22/2017. 2. Acute blood loss anemia, finally appears to be stabilizing. 3. Melena, resolving. 4. Erosive duodenitis. 5. Erosive gastritis. All indicators suggest that the active bleeding has finally significantly slowed. BUN is coming down nicely and hemoglobin remains stable overnight, melena is slowing down. We will advance her to full liquid diet for now, continue to watch closely today. I would continue her on the intravenous PPI wh ile inpatient and transition to twice daily oral Protonix on a hospital discharge. Still awaiting re sults of Helicobacter pylori serology that I ordered.
--- NOTE | 2017-06-25 13:11 | PDOC.PN ---
- Subjective Encounter Start Date: 06/25/17 Encounter Start Time: 10:00 Pt seen for followup re: anemia of acute blood loss. Denies chest pain, shortness of breath, fevers or chills. No nausea or vomiting. - Objective Resuscitation Status: Resuscitation Status FULL:Full Resuscitation MAR Reviewed: Yes Vital Signs & Weight: Vital Signs (12 hours) Temp Pulse Resp BP Pulse Ox 06/25/17 11:30 98.0 F 80 17 165/49 H 98 06/25/17 10:25 79 16 168/68 H 99 06/25/17 08:40 97.9 F 78 18 06/25/17 07:00 97.9 F 78 18 125/51 L 100 06/25/17 04:00 98.5 F 76 18 144/49 H 99 Weight Weight 190 lb 8 oz Most Recent Monitor Data Heart Rate from ECG 74 NIBP 105/46 Respiration from ECG 16 I&O: 06/24/17 06/25/17 06/26/17 06:59 06:59 06:59 Intake Total 2700 3530 Output Total 700 550 300 Balance 1999 2980 -300 Result Diagrams: 06/25/17 04:34 06/25/17 04:34 EKG Reviewed by me: Yes (Tele: NSR) Phys Exam - Physical Examination Constitutional: NAD HEENT: moist MMs, oral pharynx no lesions Neck: supple Respiratory: clear to auscultation bilateral Cardiovascular: RRR Gastrointestinal: soft Musculoskeletal: pulses present Neurological: moves all 4 limbs Psychiatric: normal affect Skin: no rash Dx/Plan (1) Acute blood loss anemia Code(s): D62 - ACUTE POSTHEMORRHAGIC ANEMIA Status: Acute Comment: hgb 6.X after rehydration. transfused PRBCs X 2 units. 6.7 last evening, transfused 2 more units. Serial h/H, transfuse as needed. (2) Duodenal ulcer Status: Acute Comment: Actively bleeding on repeat EGD with visible vessel. GI following, serial h/H. cauterized. watch h/h (3) Erosive esophagitis Code(s): K22.10 - ULCER OF ESOPHAGUS WITHOUT BLEEDING Status: Acute Comment : as above (4) HTN (hypertension) Code(s): I10 - ESSENTIAL (PRIMARY) HYPERTENSION Status: Chronic Qualifiers: Hypertension type: essential hypertension Qualified Code(s): I10 - Essential (primary) hypertension (5) Hypothyroid Code(s): E03.9 - HYPOTHYROIDISM, UNSPECIFIED Status: Chronic Qualifiers: Hypothyroidism type: acquired Qualified Code(s): E03.9 - Hypothyroidism, unspecified - Plan PT/OT, out of bed/ambulate * . Hb stable, continue PPI, continue to monitor hemoglobin level. Monitor vital signs, titrate antihypertensives as needed. Review of Systems - Review of Systems Respiratory: negative: Cough, Dry, Shortness of Breath, Hemoptysis, SOB with Excertion, Pleuritic Pain, Sputum, Wheezing Cardiovascular: negative: Chest Pain, Palpitations, Orthopnea, Paroxysmal Noc. Dyspnea, Edema, Light Headedness Gastrointestinal: negative: Nausea, Vomiting, Abdominal Pain, Diarrhea, Constipation, Melena, Hematochezia - Medications/Allergies Allergies/Adverse Reactions: Allergies Allergy/AdvReac Type Severity Reaction Status Date / Time No Known Drug Allergies Allergy Verified 06/21/17 19:43 Medications: Current Medications Acetaminophen (Tylenol) 650 mg PO Q4H PRN PRN Reason: Headache/Fever or Pain Hydrocodone Bitart/Acetaminophen ([place] 10/325) 1 tab PO Q4H PRN PRN Reason: Severe Pain (7-10) Hydrocodone Bitart/Acetaminophen ([place] 5/325) 1 tab PO Q4H PRN PRN Reason: Moderate Pain (4-6) Hydralazine HCl (Apresoline) 5 mg SLOW IVP Q2H PRN PRN Reason: SBP Greater Than 170 Hydrocortisone Acetate (Anusol-Hc) 25 mg [place] BID PRN PRN Reason: Hemorrhoids Pantoprazole Sodium 80 mg/ (Sodium Chloride) 100 mls @ 10 mls/hr IVP INF [facility] Last Admin: 06/25/17 05:28 Dose: 100 mls Sodium Chloride (1/2 Normal Saline) 1,000 mls @ 75 mls/hr IV .[id number] [facility] Last Admin: 06/25/17 05:27 Dose: 1,000 mls Ceftriaxone Sodium 1 gm/ (Syringe 0.4 ml/ Sterile Water) 10 mls @ 120 mls/hr SLOW IVP 1400 LAURYN Last Admin: 06/24/17 15:59 Dose: 10 mls Ondansetron HCl (Zofran) 4 mg IVP Q6H PRN PRN Reason: Nausea/Vomiting Last Admin: 06/21/17 22:55 Dose: 4 mg Sodium Chloride (Flush - Normal Saline) 10 ml IVF Q12HR LAURYN Last Admin: 06/25/17 09:12 Dose: Not Given Sodium Chloride (Flush - Normal Saline) 10 ml IVF PRN PRN PRN Reason: Saline Flush Venlafaxine HCl (Effexor Xr) 75 mg PO HS LAURYN Last Admin: 06/24/17 20:48 Dose: 75 mg
[2017-06-25] MEDS: cefTRIAXone\\ROCEPHIN 1 GM, Syringe 0.4 ML in Sterile Water 9.6 ML SLOW IVP SCH (14:53)
[2017-06-25] MEDS: Venlafaxine HCl XR 75 MG CAP PO SCH (21:14)
[2017-06-26] MEDS: Pantoprazole 80 MG in Sodium Chloride 0.9% 100 ML IVP SCH (00:23)
[2017-06-26 09:32] LABS: #Eosinphils 0.2 thou/uL (0.0-0.7); #Lymphocytes 0.8 thou/uL (1.20-3.40); #Monocytes 0.6 thou/uL (0.11-0.59); #Neutrophils 6.1 thou/uL (1.40-6.50); %Basophils 0.3 % (0.0-1.0); %Eosinophils 2.2 % (0.0-10.0); %Lymphocytes 9.8 % (21.0-51.0); %Monocytes 7.8 % (0.0-10.0); Hematocrit 27.4 % (36.0-47.0); Mean Platelet Volume 6.9 fL (7.4-10.4); Red Blood Cell (RBC) Count 3.03 mill/uL (4.20-5.40); White Blood Cell (WBC) Count 7.7 thou/uL (4.8-10.8)
[2017-06-26 09:52] LABS: Anion Gap 10 mmol/L (10-20); BUN (Urea Nitrogen) 9 mg/dL (9.8-20.1); Calc. Creatinine Clearance 95 mL/min (70-130); Calcium 7.8 mg/dL (7.8-10.44); Carbon Dioxide 26 mmol/L (23-31); Chloride 103 mmol/L (98-107); Estimated GFR-MDRD 82
--- NOTE | 2017-06-26 10:42 | PRG ---
DATE OF SERVICE: 06/26/2017 SUBJECTIVE: Ms. Wilson is feeling a lot better today, a little bit more energetic. She has had no furt her melena since yesterday when I saw her, no bowel movement yet today. She is feeling a bit hungry. She has remained hemodynamically stable and hemoglobin finely stabilized. OBJECTIVE: VITAL SIGNS: Temperature 98.8, pulse 88, blood pressure 170/68, 99% oxygen saturation on room air. GENERAL: Pale, no acute distress. HEART: Regular rate and rhythm. LUNGS: Clear to auscultation bilaterally. ABDOMEN: Soft and nontender to palpation. EXTREMITIES: No peripheral edema. LABORATORY STUDIES: Hemoglobin bounced up to 9.2 this morning from 8.3 yesterday. WBC 7.7, platelet s 187. Sodium 136, potassium 2.9, BUN is down to 9, creatinine down to 0.70. ASSESSMENT AND PLAN: 1. Melena, resolved. 2. Acute blood loss anemia, finally stabilized. 3. Duodenal ulcer with hemorrhage, status post esophagogastroduodenoscopy with bipolar electrocauter y of the visible vessel at the ulcer bed on 06/22/2017. 4. Erosive duodenitis. 5. Erosive gastritis. It appears that her bleeding and oozing has finally stopped. Note, the BUN h as come down all the way to 9 and hemoglobin came up on its own from yesterday. She has remained hem odynamically stable. I would switch her Protonix to 40 mg IV q.12 hours for today. Advance her diet to a regular diet. We would monitor her one more night in the hospital, but if hemoglobin is stable and melena has not recurred by tomorrow, she could potentially be discharged from the hospital [facility]. Upon discharge, she needs to be on Protonix 40 mg p.o. twice daily for at least the next 2 ortiz hs. We will have her follow up in the GI clinic in the meantime.
[2017-06-26] MEDS: Potassium Chloride 20 MEQ TAB PO SCH ×2 (11:29→16:33)
[2017-06-26] MEDS: Triamterene/Hydrochlorothiazide 37.5 mg/25 mg Tablet PO SCH (11:29)
[2017-06-26] MEDS: Sodium Chloride 0.45% 1,000 ML IV SCH (11:30)
[2017-06-26] MEDS: Gabapentin 300 MG CAP PO SCH ×2 (11:30→20:19)
--- NOTE | 2017-06-26 12:11 | PDOC.PN ---
- Subjective Encounter Start Date: 06/26/17 Encounter Start Time: 10:00 Pt seen for followup re: anemia of acute blood loss. Denies chest pain, shortness of breath, fevers or chills. No black stools. - Objective Resuscitation Status: Resuscitation Status FULL:Full Resuscitation MAR Reviewed: Yes Vital Signs & Weight: Vital Signs (12 hours) Temp Pulse Resp BP Pulse Ox 06/26/17 11:44 98.7 F 84 18 138/58 L 95 06/26/17 07:45 98.8 F 88 20 99 06/26/17 07:16 98.8 F 88 20 170/68 H 99 06/26/17 04:18 98.4 F 82 17 176/62 H 99 Weight Weight 190 lb 8 oz Most Recent Monitor Data Heart Rate from ECG 74 NIBP 105/46 Respiration from ECG 16 I&O: 06/25/17 06/26/17 06/27/17 06:59 06:59 06:59 Intake Total 3530 3320 300 Output Total 550 1200 Balance 2980 2120 300 Result Diagrams: 06/26/17 09:10 06/26/17 09:10 EKG Reviewed by me: Yes (Tele: NSR) Phys Exam - Physical Examination Constitutional: NAD HEENT: moist MMs, sclera anicteric Neck: supple Respiratory: clear to auscultation bilateral Cardiovascular: RRR Gastrointestinal: soft, non-tender, positive bowel sounds Musculoskeletal: pulses present Neurological: moves all 4 limbs Psychiatric: normal affect Skin: no rash Dx/Plan (1) Acute blood loss anemia Code(s): D62 - ACUTE POSTHEMORRHAGIC ANEMIA Status: Acute Comment: hgb 6.X after rehydration. transfused PRBCs X 2 units. 6.7 last evening, transfused 2 more units. Serial h/H, transfuse as needed. (2) Duodenal ulcer Status: Acute Comment: Actively bleeding on repeat EGD with visible vessel. GI following, serial h/H. cauterized. watch h/h (3) Erosive esophagitis Code(s): K22.10 - ULCER OF ESOPHAGUS WITHOUT BLEEDING Status: Acute Comment : as above (4) HTN (hypertension) Code(s): I10 - ESSENTIAL (PRIMARY) HYPERTENSION Status: Chronic Qualifiers: Hypertension type: essential hypertension Qualified Code(s): I10 - Essential (primary) hypertension (5) Hypothyroid Code(s): E03.9 - HYPOTHYROIDISM, UNSPECIFIED Status: Chronic Qualifiers: Hypothyroidism type: acquired Qualified Code(s): E03.9 - Hypothyroidism, unspecified - Plan PT/OT, out of bed/ambulate, DVT proph w/SCDs * . Pt coming off of PPI drip, to be on IV PPI BID today, then PO PPI BID. Home 1-2 days. Appreciate GI service input. Home meds resumed. Ambulate pt. Review of Systems - Review of Systems Cardiovascular: negative: Chest Pain, Palpitations, Orthopnea, Paroxysmal Noc. Dyspnea, Edema, Light Headedness Gastrointestinal: negative: Nausea, Vomiting, Abdominal Pain, Diarrhea, Constipation, Melena, Hematochezia Genitourinary: negative: Dysuria, Frequency, Incontinence, Hematuria, Retention - Medications/Allergies Allergies/Adverse Reactions: Allergies Allergy/AdvReac Type Severity Reaction Status Date / Time No Known Drug Allergies Allergy Verified 06/21/17 19:43 Medications: Current Medications Acetaminophen (Tylenol) 650 mg PO Q4H PRN PRN Reason: Headache/Fever or Pain Hydrocodone Bitart/Acetaminophen (Martha 10/325) 1 tab PO Q4H PRN PRN Reason: Severe Pain (7-10) Hydrocodone Bitart/Acetaminophen (Martha 5/325) 1 tab PO Q4H PRN PRN Reason: Moderate Pain (4-6) Gabapentin (Neurontin) 600 mg PO BID [facility] Last Admin: 06/26/17 11:30 Dose: 600 mg Hydralazine HCl (Apresoline) 5 mg SLOW IVP Q2H PRN PRN Reason: SBP Greater Than 170 Hydrocortisone Acetate (Anusol-Hc) 25 mg [place] BID PRN PRN Reason: Hemorrhoids Sodium Chloride (1/2 Normal Saline) 1,000 mls @ 75 mls/hr IV .[id number] [facility] Last Admin: 06/26/17 11:30 Dose: Not Given Ceftriaxone Sodium 1 gm/ (Syringe 0.4 ml/ Sterile Water) 10 mls @ 120 mls/hr SLOW IVP 1400 LAURYN Last Admin: 06/25/17 14:53 Dose: 10 mls Levothyroxine Sodium (Synthroid) 50 mcg PO 0600 LAURYN Ondansetron HCl (Zofran) 4 mg IVP Q6H PRN PRN Reason: Nausea/Vomiting Last Admin: 06/21/17 22:55 Dose: 4 mg Pantoprazole Sodium (Protonix) 40 mg IVP 2100 LAURYN (Baicalin/Catechin [ (Limbrel] 500 Mg)) 500 each PO Q12HR LAURYN Potassium Chloride (K-Dur) 40 meq PO 1100,1500 LAURYN Stop: 06/26/17 17:00 Last Admin: 06/26/17 11:29 Dose: 40 meq Propranolol HCl (Inderal La) 80 mg PO HS [facility] Sodium Chloride (Flush - Normal Saline) 10 ml IVF Q12HR [facility] Last Admin: 06/26/17 08:40 Dose: Not Given Sodium Chloride (Flush - Normal Saline) 10 ml IVF PRN PRN PRN Reason: Saline Flush Triamterene/HCTZ (Maxzide-25) 1 tab PO QAM [facility] Last Admin: 06/26/17 11:29 Dose: 1 tab Venlafaxine HCl (Effexor Xr) 75 mg PO HS [facility] Last Admin: 06/25/17 21:14 Dose: 75 mg
--- NOTE | 2017-06-26 15:24 | PQF ---
DATE: 06-26-17 ATTN: DR. YANET WALTER Please exercise your independent, professional judgment in responding to the clarification form. Clinical indicators are provided on the bottom of this form for your review Please check appropriate box(s): [ X ] Acute Renal Failure (ARF) / Acute Kidney Injury (PERLITA) [ ] Acute on Chronic Renal Failure please specify Stage of CKD (see below) [ ] CKD without ARF/PERLITA please specify Stage of CKD [ ] Other diagnosis [ ] Unable to determine In addition, please specify: Present on Admission (POA): [ ] Yes [ X] No [ ] Unable to determine National Kidney Foundation Guidelines for CKD Staging Stage I Kidney damage with normal or increased GFR GFR > 90 Stage II Kidney damage with mildly decreased GFR GFR 60-89 Stage III Kidney damage with moderately decreased GFR GFR 30-59 Stage IV Kidney damage with severely decreased GFR GFR 16-29 Stage V Kidney failure GFR<15 ESRD End Stage Renal Disease On dialysis For continuity of documentation, please document condition throughout progress notes and discharge summary. Thank You. CLINICAL INDICATORS - SIGNS / SYMPTOMS / LABS GFR: 06-21-17: 52 06-22-17: 43 06-23-17: 33 06-24-17: 55 06-25-17: 73 06-26-17: 82 CREATININE: 06-22-17: 1.22 06-23-17: 1.53 BUN: 06-21-17: 63 06-22-17: 77 06-23-17: 86 06-24-17: 54 06-25-17: 22 06-26-17: 9 ER DOCUMENTATION: NAUSEA, DIZZY, TARRY STOOLS RISK FACTORS: ER DOCUMENTATION: PT REPORTS NAUSEA AND DIAPHORESIS CONSULT NOTE DR. ESPINAL 06-25-17: CHRONIC NONSTEROIDAL ANTI-INFLAMMATORY DRUG USE TREATMENTS: (06-26-17) K DUR (06-22-17) IVF (This form is maintained as a part of the permanent medical record) 2014 [employer]. All Rights Reserved GRIS [email or web address] Office: [phone] [facility]
[2017-06-26] MEDS: cefTRIAXone\\ROCEPHIN 1 GM, Syringe 0.4 ML in Sterile Water 9.6 ML SLOW IVP SCH (16:32)
--- NOTE | 2017-06-26 16:44 | PRG ---
DATE OF SERVICE: 06/26/2017 SUBJECTIVE: Ms. Abdirahman Wilson apparently had ongoing bleeding issues over the weekend and ended up back i n the IMU. She has undergone several more endoscopies. Apparently, a duodenal visible vessel was cauterized. Apparently, she appears to be stabilized. Her hemoglobin is 9.2 today. Her lungs are clear. She wa s getting up to have a bowel movement when I evaluated her. IMPRESSION AND PLAN: Gastrointestinal blood loss secondary to duodenal bulb ulcer with a visible ves ina now cauterized. Hopefully, she is stabilized. I met with her sister and answered all of her que stions.
[2017-06-26] MEDS: Venlafaxine HCl XR 75 MG CAP PO SCH (20:19)
[2017-06-26] MEDS: Propranolol HCl LA 80 MG CAP PO SCH (20:19)
[2017-06-26] MEDS ORDERED: Pantoprazole 40 MG VIAL IVP SCH (21:00)
[2017-06-27 04:40] LABS: #Eosinphils 0.3 thou/uL (0.0-0.7); #Lymphocytes 1.1 thou/uL (1.20-3.40); #Monocytes 0.9 thou/uL (0.11-0.59); #Neutrophils 5.5 thou/uL (1.40-6.50); %Basophils 0.5 % (0.0-1.0); %Eosinophils 3.8 % (0.0-10.0); %Lymphocytes 13.7 % (21.0-51.0); %Monocytes 10.9 % (0.0-10.0); Hematocrit 26.5 % (36.0-47.0); Mean Platelet Volume 6.6 fL (7.4-10.4); Red Blood Cell (RBC) Count 2.89 mill/uL (4.20-5.40); White Blood Cell (WBC) Count 7.8 thou/uL (4.8-10.8)
[2017-06-27] MEDS: Levothyroxine Sodium 50 MCG TAB PO SCH (04:58)
[2017-06-27 05:03] LABS: Anion Gap 6 mmol/L (10-20); BUN (Urea Nitrogen) 8 mg/dL (9.8-20.1); Calc. Creatinine Clearance 93 mL/min (70-130); Calcium 8.1 mg/dL (7.8-10.44); Carbon Dioxide 29 mmol/L (23-31); Chloride 104 mmol/L (98-107); Estimated GFR-MDRD 80
[2017-06-27] MEDS: Sodium Chloride 0.45% 1,000 ML IV SCH (06:58)
[2017-06-27] MEDS: Gabapentin 300 MG CAP PO SCH ×2 (08:23→20:52)
[2017-06-27] MEDS: Triamterene/Hydrochlorothiazide 37.5 mg/25 mg Tablet PO SCH (08:23)
[2017-06-27 10:21] LABS: H. pylori IgA ABS 11.9 units (0.0-8.9); H. pylori IgG ABS 1.3 U/mL (0.0-0.8); H. pylori IgM ABS Less than 9.0 units (0.0-8.9)
[2017-06-27 10:31] LABS: Hematocrit 27.3 % (36.0-47.0)
[2017-06-27] MEDS ORDERED: Furosemide 20 MG/2 ML VIAL SLOW IVP SCH (11:00)
--- NOTE | 2017-06-27 12:10 | PRG ---
DATE OF SERVICE: 06/27/2017 SERVICE: Pulmonary Medicine. INTERVAL HISTORY: The patient is doing very well from a respiratory perspective. She has no chest discomfort. She is having some bowel movements which are small. The blood seems to be clearing. She has not seen or noticed anything that was fresh or bloody like she previously did. Otherwise, there has been no overnight events. Hemoglobins have remained stable. PHYSICAL EXAMINATION: VITAL SIGNS: Afebrile, pulse 68, blood pressure 146/51, respirations 16, saturation 98% on room air. GENERAL: The patient is awake, alert, no apparent distress. LUNGS: Excellent air entry with no prolonged expiratory phase, wheezing, rhonchi or crackles. HEART: Normal rate, regular. ABDOMEN: Soft, nontender, nondistended. Bowel sounds positive. MUSCULOSKELETAL: No cyanosis or clubbing. There is 1-2+ pitting in the bilateral lower extremities. GENITOURINARY: No Cummings. NEUROLOGIC: Grossly nonfocal. LABORATORY DATA: Hemoglobin 9.2 this morning. RBC is otherwise unremarkable. INR 1.1. Sodium 135. Potassium 4.1, basic metabolic profile is otherwise unremarkable. H. pylori antibodies are positive. Occult blood is positive. ASSESSMENT: 1. Upper gastrointestinal bleed secondary to duodenal ulcer. 2. Helicobacter pylori. 3. Acute blood loss anemia, stable. PLAN: We will provide her with a single dose of Lasix today. This can be done on a p.r.n. basis depending on her response to the medication. She is hemodynamically stable for transition out of the ICU to the regular floor. I will increase her PPI twice daily. If the patient has not previously been treated for Helicobacter pylori, triple antibiotic therapy should be considered. Pulmonary will continue to follow for the time being. JUANA
--- NOTE | 2017-06-27 13:16 | PDOC.PN ---
- Subjective Encounter Start Date: 06/27/17 Encounter Start Time: 10:10 Pt seen for followup re: duodenal ulcer. Denies chest pain, shortness of breath , fevers or chills. - Objective Resuscitation Status: Resuscitation Status FULL:Full Resuscitation MAR Reviewed: Yes Vital Signs & Weight: Vital Signs (12 hours) Temp Pulse Resp BP BP BP Pulse Ox 06/27/17 12:04 98.5 F 66 20 139/48 L 96 06/27/17 10:25 123/50 L 121/48 L 06/27/17 08:00 98.8 F 68 16 98 06/27/17 07:42 98.8 F 68 16 146/51 H 100 06/27/17 04:26 98.6 F 65 17 164/59 H 98 Pulse Ox Pulse Ox 06/27/17 12:04 06/27/17 10:25 98 98 06/27/17 08:00 06/27/17 07:42 06/27/17 04:26 Weight Weight 190 lb 8 oz Most Recent Monitor Data Heart Rate from ECG 74 NIBP 105/46 Respiration from ECG 16 I&O: 06/26/17 06/27/17 06/28/17 06:59 06:59 06:59 Intake Total 3320 3540 400 Output Total 1200 1400 Balance 2120 2140 400 Result Diagrams: 06/27/17 10:21 06/27/17 04:28 EKG Reviewed by me: Yes (Tele: NSR) Phys Exam - Physical Examination Constitutional: NAD HEENT: moist MMs, oral pharynx no lesions Neck: supple Respiratory: clear to auscultation bilateral Cardiovascular: RRR Gastrointestinal: soft, non-tender Neurological: moves all 4 limbs Psychiatric: normal affect Dx/Plan (1) Duodenal ulcer Status: Acute Comment: Actively bleeding on repeat EGD with visible vessel. GI following, serial h/H. cauterized. watch h/h (2) Erosive esophagitis Code(s): K22.10 - ULCER OF ESOPHAGUS WITHOUT BLEEDING Status: Acute Comment : as above (3) HTN (hypertension) Code(s): I10 - ESSENTIAL (PRIMARY) HYPERTENSION Status: Chronic Qualifiers: Hypertension type: essential hypertension Qualified Code(s): I10 - Essential (primary) hypertension (4) Hypothyroid Code(s): E03.9 - HYPOTHYROIDISM, UNSPECIFIED Status: Chronic Qualifiers: Hypothyroidism type: acquired Qualified Code(s): E03.9 - Hypothyroidism, unspecified (5) Acute blood loss anemia Code(s): D62 - ACUTE POSTHEMORRHAGIC ANEMIA Status: Resolved Comment: hgb 6.X after rehydration. transfused PRBCs X 2 units. 6.7 last evening, transfused 2 more units. Serial h/H, transfuse as needed. (6) Helicobacter pylori antibody positive Status: Chronic - Plan PT/OT, out of bed/ambulate * . H. Pylori IgM negative but IgG positive, pt does not recall being treated for it , will start triple therapy. Transfer to medical floor. Review of Systems - Review of Systems Respiratory: negative: Cough, Dry, Shortness of Breath, Hemoptysis, SOB with Excertion, Pleuritic Pain, Sputum, Wheezing Cardiovascular: negative: Chest Pain, Palpitations, Orthopnea, Paroxysmal Noc. Dyspnea, Edema, Light Headedness - Medications/Allergies Allergies/Adverse Reactions: Allergies Allergy/AdvReac Type Severity Reaction Status Date / Time No Known Drug Allergies Allergy Verified 06/21/17 19:43 Medications: Current Medications Acetaminophen (Tylenol) 650 mg PO Q4H PRN PRN Reason: Headache/Fever or Pain Last Admin: 06/26/17 20:18 Dose: 650 mg Hydrocodone Bitart/Acetaminophen (Howe 10/325) 1 tab PO Q4H PRN PRN Reason: Severe Pain (7-10) Hydrocodone Bitart/Acetaminophen (Howe 5/325) 1 tab PO Q4H PRN PRN Reason: Moderate Pain (4-6) Amoxicillin (Amoxil) 1,000 mg PO BID PENDING SALE TO [facility] Clarithromycin (Biaxin) 500 mg PO Q12HR LAURYN Gabapentin (Neurontin) 600 mg PO BID PENDING SALE TO [facility] Last Admin: 06/27/17 08:23 Dose: 600 mg Hydralazine HCl (Apresoline) 5 mg SLOW IVP Q2H PRN PRN Reason: SBP Greater Than 170 Ceftriaxone Sodium 1 gm/ (Syringe 0.4 ml/ Sterile Water) 10 mls @ 120 mls/hr SLOW IVP 1400 LAURYN Last Admin: 06/26/17 16:32 Dose: 10 mls Levothyroxine Sodium (Synthroid) 50 mcg PO 0600 LAURYN Last Admin: 06/27/17 04:58 Dose: 50 mcg Pantoprazole Sodium (Protonix) 40 mg IVP BID LAURYN (Baicalin/Catechin [ (Limbrel] 500 Mg)) 500 each PO Q12HR LAURYN Propranolol HCl (Inderal La) 80 mg PO HS LAURYN Last Admin: 06/26/17 20:19 Dose: 80 mg Sodium Chloride (Flush - Normal Saline) 10 ml IVF Q12HR LAURYN Last Admin: 06/27/17 08:24 Dose: 10 ml Sodium Chloride (Flush - Normal Saline) 10 ml IVF PRN PRN PRN Reason: Saline Flush Triamterene/HCTZ (Maxzide-25) 1 tab PO QAM LAURYN Last Admin: 06/27/17 08:23 Dose: 1 tab Venlafaxine HCl (Effexor Xr) 75 mg PO HS LAURYN Last Admin: 06/26/17 20:19 Dose: 75 mg
--- NOTE | 2017-06-27 13:42 | PRG ---
DATE OF SERVICE: 06/27/2017 SUBJECTIVE: Ms. Wilson is feeling pretty well. More energetic. There is no abdominal pain. She has b een tolerating her diet. No further melena. She has remained hemodynamically stable. PHYSICAL EXAMINATION: VITAL SIGNS: Temperature 98.5, pulse 66, blood pressure 139/48, 98% oxygen saturation on room air. GENERAL: No acute distress. HEART: Regular rate and rhythm. LUNGS: Clear to auscultation bilaterally. ABDOMEN: Soft and nontender to palpation. EXTREMITIES: No peripheral edema. LABORATORY STUDIES: Hemoglobin stable at 9.2, WBC 7.8, platelets 206. Sodium 135, potassium 4.1, BU N 8, creatinine 0.71. H. pylori serology is positive with elevations in IgA and IgG levels. ASSESSMENT AND PLAN: 1. Upper gastrointestinal bleeding from duodenal ulcer with visible vessel, now appears to be resolv ed. 2. Acute blood loss anemia, stabilized for 2 days. 3. Erosive duodenitis. 4. Erosive gastritis. 5. Helicobacter pylori infection. Her duodenal ulcer is probably multifactorial from NSAID use, prednisone use and it appears Helicobac ter pylori infection. Triple therapy should be started. I would use amoxicillin and clarithromycin along with pantoprazole, all twice per day for a 14-day course. We will have her follow up in the GI clinic in about a month, and at that point, we will likely do stool testing to confirm eradication. Gastroenterology will sign off at this time, but please call back with any questions or concerns.
[2017-06-27] MEDS: cefTRIAXone\\ROCEPHIN 1 GM, Syringe 0.4 ML in Sterile Water 9.6 ML SLOW IVP SCH (15:04)
[2017-06-27] MEDS: Venlafaxine HCl XR 75 MG CAP PO SCH (20:52)
[2017-06-27] MEDS: AMOXicillin 250 MG CAP PO SCH (20:53)
[2017-06-27] MEDS: Clarithromycin 500 MG TAB PO SCH (20:55)
[2017-06-27] MEDS: Propranolol HCl LA 80 MG CAP PO SCH (20:55)
[2017-06-27] MEDS: Pantoprazole 40 MG VIAL IVP SCH (20:57)
[2017-06-28 05:07] LABS: Hematocrit 27.2 % (36.0-47.0)
[2017-06-28] MEDS: Levothyroxine Sodium 50 MCG TAB PO SCH (05:48)
[2017-06-28] MEDS: Clarithromycin 500 MG TAB PO SCH (07:53)
[2017-06-28] MEDS: AMOXicillin 250 MG CAP PO SCH (07:54)
[2017-06-28] MEDS: Gabapentin 300 MG CAP PO SCH (07:54)
[2017-06-28] MEDS: Pantoprazole 40 MG VIAL IVP SCH (07:54)
[2017-06-28] MEDS: Triamterene/Hydrochlorothiazide 37.5 mg/25 mg Tablet PO SCH (07:55)
[2017-06-28 08:44] VITALS: BP 120/72; TEMP 97.9
--- NOTE | 2017-06-28 10:20 | DIS ---
DATE OF ADMISSION: 06/21/2017 DATE OF DISCHARGE: 06/28/2017 PRIMARY CARE PHYSICIAN: Charleen Vazquez D.O. DISCHARGE DIAGNOSES: 1. Upper gastrointestinal bleed. 2. Duodenal ulcers. 3. Erosive duodenitis. 4. Erosive gastritis. 5. Helicobacter pylori serology positive for IgG and IgA antibodies, negative for IgM antibody. 6. Acute blood loss anemia. CONDITION OF PATIENT AT THE TIME OF DISCHARGE: Stable. I assessed Ms. Wilson on the day of discharge. She denies any chest pain or shortness of breath. She denies any melena or hematochezia. PHYSICAL EXAMINATION: VITAL SIGNS: Stable. HEART: S1 and S2 are heard, regular. LUNGS: Clear to auscultation bilaterally. ABDOMEN: Soft, nontender, bowel sounds heard. CONSULTATIONS DURING THIS HOSPITALIZATION: Gastroenterology, Dr. Pranav Jay; Pulmonology and Critical Care Medicine, Dr. Joss Wheeler. INVESTIGATIONS DURING THIS HOSPITALIZATION: 1. EGD on 06/21/2017, which showed duodenal ulcer in the posterior bulb with clean base, but friable edges, erosive duodenitis in the duodenal bulb and erosive gastritis in the antrum. 2. Repeat EGD on 06/22/2017, duodenal bulb ulcer with visible vessel was cauterized. HOSPITAL COURSE: Ms. Wilson is a pleasant 76-year-old lady who was admitted to [facility] on 06/21/2017 for acute blood loss anemia due to upper GI bleed. She was seen by Gastroenterology Service and underwent EGD on 06/21/2017, findings as detailed above. There was concern for recurrent bleeding and she had repeat EGD, during which a vessel was cauterized in the duodenal ulcer. She also received 6 units of packed blood cell transfusions. She remained hemodynamically stable. H. pylori serology was negative for IgM, but positive for IgG and IgA. Since there is no record of her having been treated for Helicobacter pylori, she has been initiated on triple therapy with clarithromycin and amoxicillin for 14 days. She should be on b.i.d. pantoprazole for at least 2 months. Gastroenterology Service will follow up with her as outpatient in approximately a month. On the day of discharge, she has hemoglobin of 9.1, hematocrit 27.2, sodium 135 , potassium 4.1, and creatinine 0.71. She did have acute renal insufficiency during this hospitalization with creatinine rising to 1.53 on 06/23/2017, subsequently normalizing. She also had hypokalemia during this hospitalization, which was corrected. DISCHARGE MEDICATIONS: Amoxicillin 1000 mg 2 times a day for 13 more days, Limbrel 500 mg every 12 hours, Biaxin 500 mg 2 times a day for 13 more days, gabapentin 600 mg 2 times a day, levothyroxine 50 mcg daily, Protonix 40 mg 2 times a day, propranolol 80 mg at bedtime, triamterene/hydrochlorothiazide 37.5/ 25 mg daily, and venlafaxine 75 mg at bedtime. Many thanks for allowing me to participate in your patient's care. Please feel free to contact me with any questions or concerns. DISCHARGE DESTINATION: Home. TOTAL AMOUNT OF TIME SPENT COORDINATING THIS DISCHARGE: 32 minutes. JUANA
--- NOTE | 2017-06-28 15:45 | PRG ---
DATE OF SERVICE: 06/28/2017 SERVICE: Pulmonary Medicine. INTERVAL HISTORY: The patient is doing fine from a respiratory standpoint. She denies any nausea, v omiting or chest discomfort. Her bleeding from her bottom has resolved. She is tolerating full p.o. PHYSICAL EXAMINATION: VITAL SIGNS: Afebrile, pulse 69, blood pressure 120/72, respirations 18, saturation 95% on room air. GENERAL: Patient is awake, alert, no apparent distress. LUNGS: Excellent air entry with no prolonged expiratory phase, wheezing, rhonchi or crackles. HEART: Normal rate and regular. ABDOMEN: Soft, nontender, nondistended. Bowel sounds positive. MUSCULOSKELETAL: No cyanosis or clubbing. No pitting in the bilateral lower extremities. NEUROLOGIC: Grossly nonfocal. LABORATORY DATA: Hemoglobin 9.1 and stable. Basic metabolic profile is essentially unremarkable. P otassium has returned to normal at 4.1. H. pylori titers are positive. ASSESSMENT: 1. Upper gastrointestinal bleed secondary to gastritis and duodenal ulcer. 2. Helicobacter pylori. 3. Acute blood loss anemia, stable. PLAN: At this point, the patient has no further requirements for inpatient Pulmonary or Critical Car e opinion. As such, we will sign off. Please call with additional questions or concerns [place].
== END 2017-06-28 12:34 | disposition home or self-care (01) | DRG 378 ==
LOC: ERS 10:30 → T4-A 13:15 → IMCU/EMU 06-22 04:49 → T4-A 06-27 13:39
PROVIDERS: ADMIT Internal Medicine Infectious Disease; ATTEND Internal Medicine Infectious Disease
PROC: 0DJ08ZZ Inspection of Upper Intestinal Tract, Via Natural or Artificial Opening Endoscopic (ICD-10-PCS; 2017-06-21)
PROC: 30233N1 Transfusion of Nonautologous Red Blood Cells into Peripheral Vein, Percutaneous Approach (ICD-10-PCS; 2017-06-21)
PROC: 0W3P8ZZ Control Bleeding in Gastrointestinal Tract, Via Natural or Artificial Opening Endoscopic (ICD-10-PCS; principal; 2017-06-22)
DX: K26.4 Chronic or unspecified duodenal ulcer with hemorrhage (principal); D62 Acute posthemorrhagic anemia; N17.9 Acute kidney failure, unspecified; K22.10 Ulcer of esophagus without bleeding; I10 Essential (primary) hypertension; E03.9 Hypothyroidism, unspecified; K29.00 Acute gastritis without bleeding; M19.90 Unspecified osteoarthritis, unspecified site; Z66 Do not resuscitate; K29.80 Duodenitis without bleeding; B96.81 Helicobacter pylori [H. pylori] as the cause of diseases classified elsewhere; T39.395A Adverse effect of other nonsteroidal anti-inflammatory drugs [NSAID], initial encounter; E87.6 Hypokalemia
CPT/HCPCS: 36415; 36430; 80048; 80053; 81001; 82274; 82728; 83540; 83550; 85014; 85018; 85025; 85610; 85730; 86850; 86900; 86901; 93005; 96361; 96374; 96375; A4216; C9113; G8978-GP-CL; G8979-GP-CJ; G8987-GO-CJ; G8988-GO-CH; J0696; J2001; J2250; J2405; J2704; J3010; J3480; J7050; P9016

== ENCOUNTER 2021-11-02 14:44 | Outpatient (CLI) | payer MEDICARE, OTHER | END 2021-11-02 14:45 | disposition home or self-care (01) | LOC: BICMAMMO 14:44 | PROVIDERS: ATTEND Family Medicine | DX: Z12.31 Encounter for screening mammogram for malignant neoplasm of breast (principal); Z13.820 Encounter for screening for osteoporosis; N63.10 Unspecified lump in the right breast, unspecified quadrant; Z85.3 Personal history of malignant neoplasm of breast; Z98.890 Other specified postprocedural states | CPT/HCPCS: 77063; 77067; 77080 ==